=== PATIENT | female | born 1940 | race Caucasian/White ===

== ENCOUNTER → 2017-10-20 | Outpatient (REF) | payer MEDICARE, OTHER ==
[2017-10-20 18:47] LABS: C REACTIVE PROTEIN QUANTITATIV 2.51 MG/DL (0.00-0.30)
[2017-10-20 18:53] LABS: VITAMIN B12 LEVEL 316 PG/ML (247-911)
[2017-10-20 20:00] LABS: ERYTHROCYTE SEDIMENTATION RATE 44 mm/hr (0-30); REASON FOR REVIEW OTHER; SLIDE REVIEW Report; SOURCE PERIPHERAL SMEAR
== END ==
LOC: M LAB REF 16:36
DX: D72.829 Elevated white blood cell count, unspecified (principal); D47.3 Essential (hemorrhagic) thrombocythemia
CPT/HCPCS: 82607

== ENCOUNTER → 2018-03-01 | Outpatient (REF) | payer MEDICARE, OTHER ==
[2018-03-01 14:24] LABS: FERRITIN 10 NG/ML (8-252); IRON (FE) 27 UG/DL (50-170); PERCENT SATURATION 7.1 % (13.2-45.0); TOTAL IRON BINDING CAPACITY 379 UG/DL (250-450)
== END ==
LOC: M LAB REF 13:43
DX: D72.829 Elevated white blood cell count, unspecified (principal); D75.89 Other specified diseases of blood and blood-forming organs
CPT/HCPCS: 83550

== ENCOUNTER → 2020-10-11 | Outpatient (REF) | payer MEDICARE ==
[~2020-10-11] MED LIST: ASPI81TA26 PO; ESOM40CA35 PO; FERR325T3 PO; GABA-282 PO; HYDR200T3 PO; INSUDET; INSUDET SC; LISI2.5T2 PO; METO1TAB87 PO; NOVOINJ3; ROSU5TAB5 PO; SENO8.6T5 PO; VENL150C43 PO; VICT18IN
[2020-10-11 13:29] LABS: BASO # 0.1 10^3/uL (0.0-0.2); BASO % 0.7 % (0.0-1.0); EOS # 0.3 10^3/uL (0.0-0.5); EOS % 2.4 % (0.0-3.0); HEMATOCRIT 47.6 % (36.0-47.0); LYMPH # 2.6 10^3/uL (1.5-5.0); LYMPH % 19.6 % (24.0-44.0); MEAN CORPUSCULAR HEMOGLOBIN 27.8 pg (27.0-33.0); MEAN CORPUSCULAR HGB CONC 31.5 g/dl (32.0-36.5); MEAN CORPUSCULAR VOLUME 88.3 fl (80.0-96.0); MONO # 1.2 10^3/uL (0.0-0.8); MONO % 8.7 % (2.0-8.0); NEUTROPHILS # 9.1 10^3/uL (1.5-8.5); NEUTROPHILS % 68.2 % (36.0-66.0); PLATELET COUNT, AUTOMATED 399 10^3/uL (150-450); RED BLOOD COUNT 5.39 10^6/uL (4.00-5.40); WHITE BLOOD COUNT 13.3 10^3/uL (4.0-10.0)
[2020-10-11 14:08] LABS: ALBUMIN 3.4 GM/DL (3.2-5.2); ALT/SGPT 21 U/L (12-78); BILIRUBIN,DIRECT 0.2 MG/DL (0.0-0.2); BILIRUBIN,TOTAL 0.3 MG/DL (0.2-1.0); BLOOD UREA NITROGEN 16 MG/DL (7-18); C REACTIVE PROTEIN QUANTITATIV 1.02 MG/DL (0.00-0.30); CALCIUM LEVEL 9.2 MG/DL (8.8-10.2); CARBON DIOXIDE LEVEL 26 MEQ/L (21-32); CHLORIDE LEVEL 109 MEQ/L (98-107); COMPLEMENT C3 143 MG/DL (90-180); COMPLEMENT C4 23 MG/DL (10-40); CPK CREATINE PHOSPHOKINASE 29 U/L (26-192); CREATININE FOR GFR 0.91 MG/DL (0.55-1.30); GLOMERULAR FILTRATION RATE > 60.0 (>32); GLUCOSE, FASTING 64 MG/DL (70-100); IRON (FE) 77 UG/DL (50-170); MAGNESIUM LEVEL 2.1 MG/DL (1.8-2.4); PHOSPHORUS LEVEL 2.8 MG/DL (2.5-4.9); POTASSIUM SERUM 4.1 MEQ/L (3.5-5.1); RHEUMATOID FACTOR QUANT < 10.0 IU/ML (<15.0); SODIUM LEVEL 142 MEQ/L (136-145); TOTAL PROTEIN 6.8 GM/DL (6.4-8.2)
[2020-10-11 14:15] LABS: PTH INTACT 64.2 PG/ML (18.5-88.0); TOTAL 25(OH) VITAMIN D 34.4 NG/ML (30.0-100.0); VITAMIN B12 LEVEL 449 PG/ML (247-911)
[2020-10-11 14:35] LABS: ERYTHROCYTE SEDIMENTATION RATE 20 mm/hr (0-30)
[2020-10-16 21:06] LABS: ANA (HEP2) Negative (.); ANTI CENTROMERE ANTIBODY <0.2 AI (0.0-0.9); ANTI DS-DNA AB Negative (Negative); ANTI SCLERODERMA ANTIBODIES <0.2 AI (0.0-0.9); ANTI SMITH(Sm) AB <20 Units (<20); ANTI-HISTONE ANTIBODIES 0.7 Units (0.0-0.9); ANTI-U1 RNP AB <20 Units (<20); BETA-2 GLYCOPROTEIN I ABY IGA <9 (0-25); BETA-2 GLYCOPROTEIN I ABY IGG <9 (0-20); BETA-2 GLYCOPROTEIN I ABY IGM <9 (0-32); CARDIOLIPIN IGA ANTIBODY <9 APL U/mL (0-11); CARDIOLIPIN IGG ANTIBODY <9 GPL U/mL (0-14); CARDIOLIPIN IGM ANTIBODY <9 MPL U/mL (0-12); COMPLEMENT TOTAL (CH50) > 60 U/mL (>41); CYCLIC CITRULLINATED PEPTIDE 5 units (0-19); HLA-B27 Negative (.); SSA SJOGRENS A <0.2 AI (0.0-0.9); SSB SJOGRENS B <0.2 AI (0.0-0.9)
== END ==
LOC: M SFHCRHEU 10:11
PROVIDERS: ATTEND Internal Medicine
DX: M06.4 Inflammatory polyarthropathy (principal); M79.7 Fibromyalgia; M54.9 Dorsalgia, unspecified; Z79.899 Other long term (current) drug therapy
CPT/HCPCS: 80048; 80076; 81374; 82306; 82550; 82607; 83520; 83540; 83735; 83970; 84100; 84443; 85025; 85613; 85652; 85732; 86038; 86140; 86146; 86147; 86160; 86162; 86200; 86225; 86235; 86255; 86431; 86480; G0463

== ENCOUNTER → 2020-10-31 | Outpatient (CLI) | payer MEDICARE ==
--- NOTE | 2020-10-31 12:10 | REP ---
INDICATION: UNDIFFERENTIATED INFLAMMATORY ARTHRITIS COMPARISON: None. TECHNIQUE: AP, lateral, bilateral oblique views . FINDINGS: Right wrist demonstrates essentially age-related degenerative changes with mild increased sclerosis along the radial surface and minimal decreased radiocarpal joint space as well as focal degenerative change at the 1st carpometacarpal joint with subchondral sclerosis and minimal cortical irregularity. The left wrist demonstrates mildly more pronounced changes than the right wrist with decreased radiocarpal joint space as well as cortical irregularity and mild chronic subluxation at the 1st carpometacarpal joint. IMPRESSION: Relatively age-related arthritic changes (left greater than right) as described above. <Electronically signed by Danny Hogan > 10/31/20 [id number]
--- NOTE | 2020-10-31 12:18 | REP ---
INDICATION: UNDIFFERENTIATED INFLAMMATORY ARTHRITIS/MRI 1ST COMPARISON: None. TECHNIQUE: AP, lateral, bilateral oblique views right and left hand. FINDINGS: Right hand demonstrates generalized age-related osteopenia and moderate osteoarthritic degenerative changes. Findings include subchondral sclerosis and joint space narrowing with mild marginal spurring involving the interphalangeal joints and 1st carpometacarpal joint. Findings are most pronounced at the 2nd and 5th DIP joints. No periarticular erosive changes, loose bodies or significant periarticular swelling is appreciated. Left hand demonstrates generalized age-related osteopenia and moderate osteoarthritic degenerative changes slightly more pronounced than the right hand. Findings include subchondral sclerosis and joint space narrowing with mild marginal spurring involving the interphalangeal joints and 1st carpometacarpal joint. Findings are most pronounced at the 2nd and 5th DIP joints. Small periarticular presumed fractured osteophyte identified at the 2nd DIP joint. No significant periarticular erosive changes or swelling appreciated. IMPRESSION: Osteopenia and moderate osteoarthritic degenerative changes (left greater than right).. No acute fracture or dislocation. <Electronically signed by Danny Hogan > 10/31/20 [id number]
--- NOTE | 2020-10-31 12:37 | REP ---
INDICATION: UNDIFFERENTIATED INFLAMMATORY ARTHRITIS/MRI 1ST COMPARISON: None. TECHNIQUE: AP, lateral, bilateral oblique views right and left ankle. FINDINGS: Left ankle demonstrates age-related osteopenia and evidence for peripheral vascular disease. Generalized mild to moderate swelling is suggested. Small cortication adjacent to the medial malleolus may reflect old injury. Ankle mortise appears intact. Lateral view demonstrates small calcaneal heel spur and calcification at the Achilles tendon insertion. No further overt arthritic findings noted. Right ankle demonstrates age-related osteopenia and evidence for peripheral vascular disease. Ankle mortise appears intact. Lateral view demonstrates small calcaneal heel spur and calcification at the Achilles tendon insertion. No further overt arthritic findings noted. IMPRESSION: 1. Relatively symmetric age-related degenerative changes and evidence for peripheral vascular disease. 2. Mild left ankle swelling cannot be excluded and should be correlated clinically. <Electronically signed by Danny Hogan > 10/31/20 [id number]
--- NOTE | 2020-10-31 12:47 | REP ---
INDICATION: SI JOINT PAIN/XRAYS AFTER. COMPARISON: None. TECHNIQUE: Multiple sequences obtained in the axial, coronal and sagittal planes, centered on the sacrum and coccyx. FINDINGS: There are findings compatible with mild bilateral sacroiliitis and arthritic changes at the sacroiliac joints. There is mild subchondral marrow edema along both sacroiliac joints. No other abnormal bone marrow signal is seen. There is no occult fracture. Patient has had a prior hysterectomy. I see no mass, adenopathy or free fluid in the visualized pelvis. IMPRESSION: Findings consistent with mild bilateral arthritic change at the sacroiliac joints and sacroiliitis. <Electronically signed by Manuel Copeland > 10/31/20 [id number]
== END ==
LOC: M RAD 09:58
PROVIDERS: ATTEND Internal Medicine
DX: M47.818 Spondylosis without myelopathy or radiculopathy, sacral and sacrococcygeal region (principal); M06.4 Inflammatory polyarthropathy; M18.0 Bilateral primary osteoarthritis of first carpometacarpal joints

== ENCOUNTER → 2021-03-14 | Outpatient (REF) | payer MEDICARE ==
[~2021-03-14] MED LIST changes: -LISI2.5T2 PO; +LISI2.5T9 PO
[2021-03-14 17:08] LABS: BLOOD UREA NITROGEN 16 MG/DL (7-18); C REACTIVE PROTEIN QUANTITATIV 1.01 MG/DL (0.00-0.30); CALCIUM LEVEL 9.6 MG/DL (8.8-10.2); CARBON DIOXIDE LEVEL 34 MEQ/L (21-32); CHLORIDE LEVEL 106 MEQ/L (98-107); CREATININE FOR GFR 0.89 MG/DL (0.55-1.30); GLOMERULAR FILTRATION RATE > 60.0 (>32); GLUCOSE, FASTING 150 MG/DL (70-100); POTASSIUM SERUM 4.4 MEQ/L (3.5-5.1); SODIUM LEVEL 143 MEQ/L (136-145)
== END ==
LOC: M SFHCRHEU 12:05
PROVIDERS: ATTEND Internal Medicine
DX: L40.50 Arthropathic psoriasis, unspecified (principal)
CPT/HCPCS: 80048; 85652; 86140; G0463

== ENCOUNTER → 2022-09-23 | Outpatient (REF) | payer MEDICARE ==
[2022-09-23 17:49] LABS: C REACTIVE PROTEIN QUANTITATIV < 0.40 MG/DL (<1.0)
[2022-09-23 17:50] LABS: ALBUMIN 3.5 G/DL (3.2-5.2); ALKALINE PHOSPHATASE 87 U/L (46-116); ALT/SGPT 20 U/L (7.0-40); AST/SGOT 22 U/L (<34); BILIRUBIN,DIRECT 0.2 MG/DL (<0.4); BILIRUBIN,TOTAL 0.5 MG/DL (0.3-1.2); BLOOD UREA NITROGEN 16 MG/DL (9-23); CALCIUM LEVEL 10.2 MG/DL (8.3-10.6); CARBON DIOXIDE LEVEL 29 MMOL/L (20-31); CHLORIDE LEVEL 108 MMOL/L (98-107); CREATININE FOR GFR 0.87 MG/DL (0.55-1.30); GLOMERULAR FILTRATION RATE > 60.0 (>32); GLUCOSE, FASTING 128 MG/DL (74-106); POTASSIUM SERUM 5.4 MMOL/L (3.5-5.1); SODIUM LEVEL 149 MMOL/L (136-145); TOTAL PROTEIN 6.9 G/DL (5.7-8.2)
[2022-09-23 17:51] LABS: TOTAL 25(OH) VITAMIN D 36.2 NG/ML (20.0-100.0)
[2022-09-23 18:25] LABS: ERYTHROCYTE SEDIMENTATION RATE 35 mm/hr (0-30)
[2022-09-23 18:28] LABS: BASO # 0.1 10^3/uL (0.0-0.2); BASO % 0.8 % (0.0-1.0); EOS # 0.3 10^3/uL (0.0-0.5); EOS % 2.2 % (0.0-3.0); HEMATOCRIT 48.7 % (36.0-47.0); HEMOGLOBIN 15.6 g/dl (12.0-15.5); LYMPH # 2.7 10^3/uL (1.5-5.0); LYMPH % 21.6 % (24.0-44.0); MEAN CORPUSCULAR HEMOGLOBIN 28.4 pg (27.0-33.0); MEAN CORPUSCULAR VOLUME 88.7 fl (80.0-96.0); MONO # 1.3 10^3/uL (0.0-0.8); MONO % 10.6 % (2.0-8.0); NEUTROPHILS % 64.4 % (36.0-66.0); PLATELET COUNT, AUTOMATED 326 10^3/uL (150-450); RED BLOOD COUNT 5.49 10^6/uL (4.00-5.40); WHITE BLOOD COUNT 12.3 10^3/uL (4.0-10.0)
== END ==
LOC: M SFHCRHEU 12:51
PROVIDERS: ATTEND Internal Medicine
DX: L40.50 Arthropathic psoriasis, unspecified (principal)